=== PATIENT | female | born 1975 | race Caucasian/White ===

== ENCOUNTER → 2016-09-18 | Outpatient (CLI) | payer BC ==
[2016-09-18 08:20] LABS: HEMOGLOBIN 13.1 g/dL (12.2-16.2); LYMPH # 1.8 K/mm3 (0.7-4.5); LYMPH % 28.5 % (10-50.0)
[2016-09-18 10:35] LABS: BUN 14 mg/dL (7-18)
[2016-09-18 10:40] LABS: GFR (ESTIMATED) 111 ML/MIN (59-)
[2016-09-19 07:36] LABS: LH 40.5 mIU/mL (.)
== END ==
LOC: LAB 08:06
PROVIDERS: Family Medicine
DX: H57.11 Ocular pain, right eye (principal); Z00.00 Encounter for general adult medical examination without abnormal findings

== ENCOUNTER → 2016-09-27 | Outpatient (CLI) | payer OTHER ==
--- NOTE | 2016-09-27 15:08 | RADIOLOGY REPORT PS360 ---
CT SINUS (MAX-FACIAL W/O CONT) ORDERING PHYSICIAN : Roberto Eastman MD PATIENT AGE: 41 years GENDER: Female INDICATION: OCULAR PAIN RIGHT EYE,INFECTION Ocular pain compression by the right. Infection 6 months or longer. 41-year-old TECHNIQUE: Helical CT scanning performed through the paranasal sinuses facial bones with sagittal and coronal reconstructions on CT workstation. COMPARISON: No previous studies available for comparison FINDINGS. RIGHT MAXILLARY SINUS: Moderate lobulated mucosal thickening at lateral floor right maxillary sinus. Possible developing retention cyst. Measure up to AP millimeters at its base and minimal bulging inward 10mm . Otherwise the upper portion and medial wall right maxillary sinus clear unremarkable LEFT MAXILLARY SINUS. Very minor polypoid mucosal thickening posterior aspect medial wall Superiorly the left maxillary sinus clear and unremarkable. The ostiomeatal unit and pathway patent bilaterally. Appear normal. Ethmoid air cells are well-developed and clear. Sphenoid sinus. Clear. Modest size. Frontal sinuses. Clear Modest size. No mucosal thickening Nasal septum.: Mild sigmoid deviation on coronal view. Inferior septum deviates slightly to the right & the more superior septum deviates slightly leftward on the coronal images. Moderate/generous engorgement nasal turbinates slightly yield moderate narrowing of nasal airway. Right and left TMJ included and intact. Multiple dental fillings yield streak artifact this level. The mastoid air cells are well-developed and clear. Middle ear clear. IACs unremarkable. Skull intact In regards to right orbital pain I see no retrobulbar abnormality. The right and left globe appear symmetrical and intact. Extraocular muscles appear normal. Lacrimal gland symmetrical and normal. The Limited images at inferior brain unremarkable. IMPRESSION: ---- 1. Minor observations no prominent findings 2. Paranasal sinuses.: Moderate lobulated mucosal thickening or retention cyst at floor Right Maxillary Sinus. Barely evident scant mucosal thickening posterior Left Maxillary sinus Above minimal features appear chronic in nature with no air-fluid levels or acute appearing findings at sinuses Otherwise paranasal sinuses are clear and unremarkable.. 3. Orbits survey unremarkable. No retrobulbar pathology. 4. Mild sigmoid deviation nasal septum moderate engorgement of turbinates
== END ==
LOC: RAD 07:49
DX: H57.11 Ocular pain, right eye (principal); H05.00 Unspecified acute inflammation of orbit